=== PATIENT | male | born 1965 | race African-American/Black ===

== ENCOUNTER 2023-07-01 11:56 | Inpatient (IN) | payer OTHER ==
[~2023-07-01] VITALS: Ht 175.3 cm; Wt 164.0 kg
[2023-07-01] MEDS ORDERED: CALCIUM GLUCONATE 0.465 MEQ/ML 10 ML VIAL ONE (12:06)
[2023-07-01] MEDS: CALCIUM GLUCONATE 100 MG/ML 10 ML IVP ONE (12:22)
[2023-07-01] MEDS: ONDANSETRON HCL 4 MG/2 ML VIAL IVP ONE (12:23)
[2023-07-01] MEDS: SODIUM CHLORIDE 0.9% 1,000 ML IV ONE (12:23)
[2023-07-01] MEDS: DILTIAZEM HCL 5 MG/ML 5 ML VIAL IVP ONE ×2 (12:23→17:04)
[2023-07-01] MEDS ORDERED: APIX5TAB PO (12:27)
[2023-07-01] MEDS ORDERED: METO100T14 PO (12:27)
[2023-07-01] MEDS ORDERED: ISOS60TA77 PO (12:27)
[2023-07-01] MEDS ORDERED: DILT240T11 PO (12:27)
[2023-07-01] MEDS ORDERED: HYDR100T28 PO (12:27)
[2023-07-01] MEDS ORDERED: CHLO25TA3 PO (12:27)
[2023-07-01] MEDS ORDERED: SPIR-37 PO (12:27)
[2023-07-01] MEDS ORDERED: LOSA100T59 PO (12:27)
[2023-07-01] MEDS ORDERED: TAMS0.4C94 PO (12:27)
[2023-07-01] MEDS ORDERED: ATOR20TA65 PO (12:27)
[2023-07-01] MEDS ORDERED: GABA-1181 PO (12:27)
[2023-07-01 12:38] LABS: BASOPHILS % (AUTO) 0.2 % (0.0-2.0); EOSINOPHILS % (AUTO) 0 % (1.0-6.0); HEMOGLOBIN 17.8 g/dL (13.5-17.5); LYMPHOCYTES # (AUTO) 1.5 K/uL (1.0-4.8); LYMPHOCYTES % (AUTO) 11.1 % (22.0-44.0); MEAN CORPUSCULAR HEMOGLOBIN 31.5 pg (26.0-34.0); MEAN CORPUSCULAR HGB CONC 33.6 G/dL (31.0-37.0); MEAN CORPUSCULAR VOLUME 94 fL (80-100); MONOCYTES # (AUTO) 0.9 K/uL (0.1-1.0); MONOCYTES % (AUTO) 6.5 % (2.0-9.0); NEUTROPHILS % (AUTO) 82.2 % (40.0-70.0); PLATELET COUNT (AUTO) 224 K/uL (150-450); RED BLOOD CELL COUNT(AUTO) 5.66 MIL/uL (4.50-5.90); RED CELL DISTRIBUTION WIDTH 15.5 % (11.5-14.5); WHITE BLOOD COUNT (AUTO) 13.4 K/uL (4.5-11.0)
[2023-07-01 12:45] LABS: ABG BASE EXCESS -7.5 mmol/L (-2.0-3.0); ABG CARBOXYHEMOGLOBIN 0.2 % (0.0-1.5); ABG HCO3 22.7 mmol/L (22.0-26.0); ABG METHEMOGLOBIN 0.8 % (0.0-1.5); ABG OXYGEN CONTENT 27.4 mL/dL (15.0-23.0); ABG OXYGEN SATURATION 99.3 % (95.0-98.0); ABG OXYHEMOGLOBIN 98.3 % (94.0-100.0); ABG PH 7.625 (7.35-7.450); ABG TOTAL HEMOGLOBIN 19.7 G/dL (12.0-18.0); SOURCE, BLOOD GAS ARTERIAL; TEMPERATURE, FAHRENHEIT, BG 98.6 FAHREN (96.0-98.6)
[2023-07-01 12:46] LABS: ABG A-A DIFF O2 101.1 mmHg (10-20.0); ABG PCO2 13 mmHg (35-45); ALLEN TEST, BLOOD GAS Positive; O2 DEVICE,BLOOD GAS CANNULA (ROOM AIR); SITE, BLOOD GAS LFT RADIAL
[2023-07-01 12:48] LABS: ANION GAP 24 mmol/L (8-16); CALCIUM, TOTAL 10.4 mg/dL (8.8-10.5); CARBON DIOXIDE 15 mmol/L (22-29); CHLORIDE 97 mmol/L (98-107); CREATININE 2.93 mg/dL (0.60-1.30); GLOMERULAR FILTR. RATE CALC 22 mL/min (>60); GLUCOSE,RANDOM 106 mg/dL (70-110); POTASSIUM 3.4 mmol/L (3.5-5.1); SODIUM SERUM 136 mmol/L (136-145); UREA NITROGEN, BLOOD 47 mg/dL (7-18)
[2023-07-01] MEDS: DIGOXIN 250 MCG/ML 2 ML AMP IVP ONE (12:49)
[2023-07-01] MEDS: AMIODARONE HCL 50 MG/ML 3 ML VIAL IVP ONE (12:49)
[2023-07-01 12:50] LABS: INR 1.3 (0.9-1.1)
[2023-07-01 13:02] LABS: B-TYPE NATRIURETIC PEPTIDE 34 pg/mL (0-100)
[2023-07-01 13:03] LABS: LACTIC ACID 2.7 mmol/L (0.4-2.0)
[2023-07-01 13:04] LABS: TROPONIN I-HIGH SENSITIVITY 254 ng/L (<76)
[2023-07-01] MEDS: AMIODARONE HCL 360 MG in DEXTROSE 5%-WATER 242.8 ML IV ONE (13:07)
[2023-07-01 13:10] LABS: ALCOHOL, BLOOD (SERUM) < 3 mg/dL (0-10)
[2023-07-01 13:14] LABS: ALANINE AMINOTRANSFERASE 24 U/L (12-78); ALBUMIN 3.9 g/dL (3.4-5.0); ALKALINE PHOSPHATASE 174 U/L (46-116); ASPARTATE AMINOTRANSFERASE 28 U/L (15-37); BILIRUBIN,TOTAL 1.2 mg/dL (0.1-1.0); CREATINE KINASE, TOTAL ONLY 281 U/L (39-308); LIPASE 45 U/L (16-77); TOTAL PROTEIN, SERUM 8.8 g/dL (6.4-8.2)
[2023-07-01 14:23] LABS: COVID AG,FIA SOURCE NASAL SWAB
[2023-07-01 14:43] LABS: TROPONIN I-HIGH SENSITIVITY 258 ng/L (<76)
[2023-07-01 14:47] LABS: SARS-COV2 (COVID) ANTIGEN,FIA Negative (Negative)
[2023-07-01] MEDS ORDERED: HEPARIN SODIUM,PORCINE 5,000 UNITS/ML VIAL IVP PRN (17:15)
[2023-07-01 17:45] LABS: BASOPHILS % (AUTO) 0.3 % (0.0-2.0); EOSINOPHILS % (AUTO) 0.1 % (1.0-6.0); HEMATOCRIT 49.8 % (41-53); HEMOGLOBIN 17.1 g/dL (13.5-17.5); LYMPHOCYTES # (AUTO) 1.4 K/uL (1.0-4.8); LYMPHOCYTES % (AUTO) 11.8 % (22.0-44.0); MEAN CORPUSCULAR HEMOGLOBIN 31.7 pg (26.0-34.0); MEAN CORPUSCULAR HGB CONC 34.2 G/dL (31.0-37.0); MEAN CORPUSCULAR VOLUME 93 fL (80-100); MONOCYTES # (AUTO) 0.8 K/uL (0.1-1.0); MONOCYTES % (AUTO) 6.6 % (2.0-9.0); NEUTROPHILS # (AUTO) 9.8 K/uL (1.8-7.7); NEUTROPHILS % (AUTO) 81.2 % (40.0-70.0); PLATELET COUNT (AUTO) 205 K/uL (150-450); RED BLOOD CELL COUNT(AUTO) 5.38 MIL/uL (4.50-5.90); RED CELL DISTRIBUTION WIDTH 15.3 % (11.5-14.5); WHITE BLOOD COUNT (AUTO) 12.1 K/uL (4.5-11.0)
[2023-07-01] MEDS: HEPARIN SODIUM,PORCINE 5,000 UNITS/ML VIAL IVP ONE (17:49)
[2023-07-01] MEDS: AMIODARONE HCL 540 MG in DEXTROSE 5%-WATER 239.2 ML IV ONE (17:50)
[2023-07-01] MEDS: LOSARTAN POTASSIUM 50 MG TABLET PO ONE (18:39)
[2023-07-01] MEDS: HEPARIN SODIUM 25000 UNITS/D5W 250 ML IV PRN (18:48)
[2023-07-01] MEDS: HEPARIN SODIUM,PORCINE 5,000 UNITS/ML VIAL IVP PRN (18:49)
[2023-07-01] MEDS: METOPROLOL TARTRATE 50 MG TABLET PO SCH (20:54)
[2023-07-01] MEDS: GABAPENTIN 300 MG CAPSULE PO SCH (20:57)
[2023-07-01] MEDS ORDERED: APIXABAN 5 MG TABLET PO SCH (21:00)
[2023-07-02 05:35] LABS: BASOPHILS % (AUTO) 0.5 % (0.0-2.0); EOSINOPHILS % (AUTO) 0.9 % (1.0-6.0); HEMATOCRIT 49.1 % (41-53); HEMOGLOBIN 16.9 g/dL (13.5-17.5); LYMPHOCYTES # (AUTO) 1.6 K/uL (1.0-4.8); LYMPHOCYTES % (AUTO) 15.5 % (22.0-44.0); MEAN CORPUSCULAR HEMOGLOBIN 31.9 pg (26.0-34.0); MEAN CORPUSCULAR HGB CONC 34.3 G/dL (31.0-37.0); MEAN CORPUSCULAR VOLUME 93 fL (80-100); MONOCYTES # (AUTO) 0.7 K/uL (0.1-1.0); MONOCYTES % (AUTO) 7.3 % (2.0-9.0); NEUTROPHILS # (AUTO) 7.7 K/uL (1.8-7.7); NEUTROPHILS % (AUTO) 75.8 % (40.0-70.0); PLATELET COUNT (AUTO) 218 K/uL (150-450); RED BLOOD CELL COUNT(AUTO) 5.29 MIL/uL (4.50-5.90); RED CELL DISTRIBUTION WIDTH 15.3 % (11.5-14.5); WHITE BLOOD COUNT (AUTO) 10.1 K/uL (4.5-11.0)
[2023-07-02 05:50] LABS: CALCIUM, TOTAL 9.4 mg/dL (8.8-10.5); CREATININE 2.38 mg/dL (0.60-1.30); POTASSIUM 3.9 mmol/L (3.5-5.1); THYROID STIMULATING HORMONE 0.51 uIU/mL (0.36-3.74)
[2023-07-02 05:54] LABS: TROPONIN I-HIGH SENSITIVITY 273 ng/L (<76)
[2023-07-02] MEDS: TAMSULOSIN HCL 0.4 MG CAPSULE PO SCH (08:16)
[2023-07-02] MEDS: ATORVASTATIN CALCIUM 20 MG TABLET PO SCH (08:16)
[2023-07-02] MEDS ORDERED: APIXABAN 5 MG TABLET PO SCH (09:00)
[2023-07-02] MEDS ORDERED: SPIRONOLACTONE 25 MG TABLET PO SCH (09:00)
[2023-07-02] MEDS ORDERED: CHLORTHALIDONE 25 MG TABLET PO SCH (09:00)
[2023-07-02] MEDS ORDERED: ISOSORBIDE MONONITRATE 60 MG ER TABLET PO SCH (09:00)
[2023-07-02] MEDS ORDERED: AMIODARONE HCL 750 MG in DEXTROSE 5%-WATER 485 ML IV SCH (12:45)
[2023-07-02 13:20] VITALS: BP 114/72; PULSE 86; RESP 20; TEMP 98
[2023-07-02 16:00] VITALS: BP 132/95; PULSE 100; RESP 22; TEMP 98.4
[2023-07-02 20:00] VITALS: BP 112/79; PULSE 99; RESP 20; TEMP 98.2
[2023-07-02] MEDS: APIXABAN 5 MG TABLET PO SCH (20:55)
[2023-07-02] MEDS ORDERED: ONDANSETRON HCL 4 MG/2 ML VIAL IVP PRN (23:45)
[2023-07-02] MEDS ORDERED: IPRATROPIUM BROMIDE 0.5 MG/2.5 ML NEB SOLUTION NEB PRN (23:45)
[2023-07-02] MEDS ORDERED: HYDROCODONE/ACETAMINOPHEN 5-325 MG TABLET PO PRN (23:45)
[2023-07-02] MEDS ORDERED: MORPHINE SULFATE 2 MG/ML SYRINGE IVP PRN (23:45)
[2023-07-02] MEDS ORDERED: MAGNESIUM HYDROXIDE SUSPENSION 30 ML UDCUP PO PRN (23:45)
[2023-07-02] MEDS ORDERED: ALBUTEROL SULFATE 2.5 MG/0.5 ML NEB SOLUTION NEB PRN (23:45)
[2023-07-02] MEDS ORDERED: BISACODYL 10 MG RECTAL RECTAL SUPPOSITORY PR PRN (23:45)
[2023-07-03] VITALS: BP 148/81; PULSE 91; RESP 20; TEMP 98.6; O2SAT 98
[2023-07-03 04:00] VITALS: BP 122/72; PULSE 139; RESP 17; TEMP 98.1; O2SAT 98
[2023-07-03 05:51] LABS: BASOPHILS % (AUTO) 0.3 % (0.0-2.0); EOSINOPHILS % (AUTO) 1.9 % (1.0-6.0); HEMATOCRIT 49.9 % (41-53); HEMOGLOBIN 16.5 g/dL (13.5-17.5); LYMPHOCYTES # (AUTO) 1.8 K/uL (1.0-4.8); LYMPHOCYTES % (AUTO) 16.5 % (22.0-44.0); MEAN CORPUSCULAR HGB CONC 33.1 G/dL (31.0-37.0); MEAN CORPUSCULAR VOLUME 94 fL (80-100); MONOCYTES # (AUTO) 0.8 K/uL (0.1-1.0); MONOCYTES % (AUTO) 7.4 % (2.0-9.0); NEUTROPHILS # (AUTO) 8.2 K/uL (1.8-7.7); NEUTROPHILS % (AUTO) 73.9 % (40.0-70.0); PLATELET COUNT (AUTO) 215 K/uL (150-450); RED BLOOD CELL COUNT(AUTO) 5.33 MIL/uL (4.50-5.90); RED CELL DISTRIBUTION WIDTH 14.9 % (11.5-14.5); WHITE BLOOD COUNT (AUTO) 11.1 K/uL (4.5-11.0)
[2023-07-03 06:03] LABS: CALCIUM, TOTAL 9.1 mg/dL (8.8-10.5); CREATININE 2.12 mg/dL (0.60-1.30); POTASSIUM 3.8 mmol/L (3.5-5.1)
[2023-07-03 08:00] VITALS: BP 145/90; PULSE 131; RESP 16; RESP 17; TEMP 98.1; TEMP 98.3; O2SAT 94
[2023-07-03] MEDS: PANTOPRAZOLE SODIUM 40 MG DR TABLET PO SCH (08:21)
[2023-07-03] MEDS: DILTIAZEM HCL CD 120 MG ER CAPSULE PO SCH (10:26)
[2023-07-03 12:00] VITALS: BP 132/89; PULSE 112; RESP 20; TEMP 97.6; O2SAT 97
[2023-07-03] MEDS: VANCOMYCIN HCL 1.5 GM in DEXTROSE 5%-WATER 250 ML IV ONE (13:08)
[2023-07-03 14:46] LABS: C-REACTIVE PROTEIN QUANT 4.82 mg/dL (0.00-0.30)
[2023-07-03 16:00] VITALS: BP 132/78; PULSE 105; RESP 20; TEMP 98.2; O2SAT 96
[2023-07-03 20:00] VITALS: BP 112/85; PULSE 92; RESP 18; TEMP 98.4
[2023-07-04 00:38] VITALS: BP 126/64; PULSE 66; RESP 18; TEMP 97.8
[2023-07-04 05:23] VITALS: BP 142/97; PULSE 86; RESP 18; TEMP 97.9
[2023-07-04] MEDS ORDERED: SODIUM CHLORIDE 0.9% 500 ML IV ONE (09:13)
[2023-07-04] MEDS: VANCOMYCIN HCL 1.5 GM in DEXTROSE 5%-WATER 250 ML IV SCH (09:32)
[2023-07-04 10:38] LABS: BASOPHILS % (AUTO) 0.7 % (0.0-2.0); EOSINOPHILS % (AUTO) 2.1 % (1.0-6.0); HEMATOCRIT 47.3 % (41-53); HEMOGLOBIN 15.7 g/dL (13.5-17.5); LYMPHOCYTES # (AUTO) 1.2 K/uL (1.0-4.8); LYMPHOCYTES % (AUTO) 12.7 % (22.0-44.0); MEAN CORPUSCULAR HEMOGLOBIN 31.3 pg (26.0-34.0); MEAN CORPUSCULAR HGB CONC 33.1 G/dL (31.0-37.0); MEAN CORPUSCULAR VOLUME 94 fL (80-100); MONOCYTES # (AUTO) 0.7 K/uL (0.1-1.0); MONOCYTES % (AUTO) 7.5 % (2.0-9.0); NEUTROPHILS # (AUTO) 7.2 K/uL (1.8-7.7); PLATELET COUNT (AUTO) 187 K/uL (150-450); RED BLOOD CELL COUNT(AUTO) 5.02 MIL/uL (4.50-5.90); RED CELL DISTRIBUTION WIDTH 14.8 % (11.5-14.5); WHITE BLOOD COUNT (AUTO) 9.4 K/uL (4.5-11.0)
[2023-07-04 10:49] LABS: POTASSIUM 3.7 mmol/L (3.5-5.1)
[2023-07-04 10:50] LABS: CALCIUM, TOTAL 9.1 mg/dL (8.8-10.5); CREATININE 1.59 mg/dL (0.60-1.30)
[2023-07-04 11:09] VITALS: BP 143/97; PULSE 92; RESP 16; TEMP 97.4
[2023-07-04 12:36] VITALS: BP 129/86; PULSE 87; RESP 14; TEMP 97.6
[2023-07-04 15:28] LABS: APPEARANCE,URINE CLEAR (CLEAR); BILIRUBIN,URINE NEGATIVE (NEGATIVE); COLOR,URINE LIGHT YELLOW (YELLOW); GLUCOSE, URINE (UA) NEGATIVE (NEGATIVE); KETONES,URINE NEGATIVE (NEGATIVE); LEUKOCYTE ESTERASE ,URINE NEGATIVE (NEGATIVE); NITRATE,URINE NEGATIVE (NEGATIVE); OCCULT BLOOD,URINE NEGATIVE (NEGATIVE); PROTEIN,URINE TRACE mg/dL (NEGATIVE); SPECIFIC GRAVITIY, URINE 1.019 (1.003-1.030); UROBILINOGEN,URINE <=1.0 mg/dL (<=1.0)
[2023-07-04 16:16] LABS: BACTERIA,URINE None Seen /HPF (None Seen); RBC,URINE None Seen /HPF (0-2); SQUAMOUS EPITHELIAL CELL,UR None Seen /LPF (None Seen); WBC,URINE None Seen /HPF (0-5)
[2023-07-04 17:53] VITALS: BP 120/99; PULSE 78; RESP 14; TEMP 98.1
[2023-07-04 20:20] VITALS: BP 135/91; PULSE 71; RESP 18; TEMP 97.7
[2023-07-04] MEDS: ZOLPIDEM TARTRATE 5 MG TABLET PO PRN (20:25)
[2023-07-04] MEDS: VANCOMYCIN HCL 1.25 GM in DEXTROSE 5%-WATER 250 ML IV SCH (20:25)
[2023-07-05 00:01] LABS: ALCOHOL, URINE DRUG SCREEN NEGATIVE (NEGATIVE); AMPHET/METH SCREEN,URINE NEGATIVE (NEGATIVE); BARBITURATE SCREEN, URINE NEGATIVE (NEGATIVE); BENZODIAZEPINES SCREEN,URINE NEGATIVE (NEGATIVE); CANNABINOID SCREEN,URINE NEGATIVE (NEGATIVE); COCAINE SCREEN,URINE NEGATIVE (NEGATIVE); METHADONE SCREEN, URINE NEGATIVE (NEGATIVE); OPIATE SCREEN,URINE NEGATIVE (NEGATIVE); PHENCYCLIDINE SCREEN,URINE NEGATIVE (NEGATIVE)
[2023-07-05 04:00] VITALS: BP 128/89; PULSE 82; RESP 17; TEMP 97.8
[2023-07-05 07:18] LABS: ANION GAP 9 mmol/L (8-16); CALCIUM, TOTAL 9.2 mg/dL (8.8-10.5); CARBON DIOXIDE 26 mmol/L (22-29); CHLORIDE 102 mmol/L (98-107); GLOMERULAR FILTR. RATE CALC > 60 mL/min (>60); GLUCOSE,RANDOM 92 mg/dL (70-110); POTASSIUM 3.9 mmol/L (3.5-5.1); SODIUM SERUM 137 mmol/L (136-145); UREA NITROGEN, BLOOD 27 mg/dL (7-18)
[2023-07-05 14:57] VITALS: BP 158/113; PULSE 92; RESP 18; TEMP 98
[2023-07-05 18:19] VITALS: BP 143/96; PULSE 89; RESP 18; TEMP 97.8
[2023-07-05 20:00] VITALS: BP 133/75; PULSE 92; RESP 18; TEMP 97.9
[2023-07-06] VITALS: BP 133/107; PULSE 91; RESP 16; TEMP 97.7
[2023-07-06 04:00] VITALS: BP 157/108; PULSE 91; RESP 17; TEMP 98
[2023-07-06 06:09] LABS: CALCIUM, TOTAL 9.3 mg/dL (8.8-10.5); CREATININE 1.5 mg/dL (0.60-1.30); POTASSIUM 4.1 mmol/L (3.5-5.1); VANCOMYCIN,RANDOM 25.1 mcg/mL (25.0-50.0)
[2023-07-06 09:30] VITALS: BP 143/96; PULSE 89; RESP 18; TEMP 97.8
[2023-07-06] MEDS ORDERED: SODIUM CHLORIDE 0.9% 1,000 ML ONE (09:37)
[2023-07-06] MEDS: VANCOMYCIN 1GM/WATER(PEG/NADA) 200 ML IV SCH (09:43)
[2023-07-06 13:42] VITALS: BP 117/95; PULSE 90; RESP 18; TEMP 98
[2023-07-06 18:00] VITALS: BP 149/96; PULSE 93; RESP 18; TEMP 97.5
[2023-07-06 20:00] VITALS: BP 160/87; PULSE 92; RESP 17; TEMP 98.2
[2023-07-07] VITALS (7 sets, daily range): BP systolic 117–165; BP diastolic 79–104; PULSE 75–87; RESP 18–20; TEMP 98–98.3
[2023-07-07 07:52] LABS: ANION GAP 7 mmol/L (8-16); C-REACTIVE PROTEIN QUANT 2.39 mg/dL (0.00-0.30); CALCIUM, TOTAL 9.2 mg/dL (8.8-10.5); CARBON DIOXIDE 27 mmol/L (22-29); CHLORIDE 103 mmol/L (98-107); CREATININE 1.34 mg/dL (0.60-1.30); GLOMERULAR FILTR. RATE CALC > 60 mL/min (>60); GLUCOSE,RANDOM 77 mg/dL (70-110); POTASSIUM 4.3 mmol/L (3.5-5.1); SODIUM SERUM 137 mmol/L (136-145); UREA NITROGEN, BLOOD 24 mg/dL (7-18)
[2023-07-07 07:53] LABS: BASOPHILS % (AUTO) 0.2 % (0.0-2.0); HEMATOCRIT 45.9 % (41-53); LYMPHOCYTES # (AUTO) 1.4 K/uL (1.0-4.8); LYMPHOCYTES % (AUTO) 16.5 % (22.0-44.0); MEAN CORPUSCULAR HEMOGLOBIN 30.8 pg (26.0-34.0); MEAN CORPUSCULAR HGB CONC 32.7 G/dL (31.0-37.0); MEAN CORPUSCULAR VOLUME 94 fL (80-100); MONOCYTES # (AUTO) 0.5 K/uL (0.1-1.0); MONOCYTES % (AUTO) 6.2 % (2.0-9.0); NEUTROPHILS # (AUTO) 6.4 K/uL (1.8-7.7); NEUTROPHILS % (AUTO) 74.1 % (40.0-70.0); PLATELET COUNT (AUTO) 229 K/uL (150-450); RED BLOOD CELL COUNT(AUTO) 4.88 MIL/uL (4.50-5.90); RED CELL DISTRIBUTION WIDTH 14.6 % (11.5-14.5); WHITE BLOOD COUNT (AUTO) 8.6 K/uL (4.5-11.0)
[2023-07-07] MEDS: ACETAMINOPHEN 325 MG TABLET PO PRN (08:11)
[2023-07-08 00:13] VITALS: BP 152/98; PULSE 85; RESP 20; TEMP 97.5
[2023-07-08 08:00] VITALS: BP 144/98; PULSE 82; RESP 20; TEMP 97.4
[2023-07-08 08:23] LABS: ANION GAP 8 mmol/L (8-16); CALCIUM, TOTAL 9.1 mg/dL (8.8-10.5); CARBON DIOXIDE 28 mmol/L (22-29); CHLORIDE 104 mmol/L (98-107); CREATININE 1.27 mg/dL (0.60-1.30); GLOMERULAR FILTR. RATE CALC > 60 mL/min (>60); GLUCOSE,RANDOM 77 mg/dL (70-110); POTASSIUM 3.7 mmol/L (3.5-5.1); SODIUM SERUM 140 mmol/L (136-145); UREA NITROGEN, BLOOD 20 mg/dL (7-18); VANCOMYCIN,RANDOM 20.4 mcg/mL (25.0-50.0)
[2023-07-08 12:00] VITALS: BP 130/84; PULSE 78; RESP 20; TEMP 98
[2023-07-08 16:00] VITALS: BP 128/78; PULSE 68; RESP 20; TEMP 97.9
[2023-07-08] MEDS ORDERED: IOHEXOL 350 MG/ML 100 ML VIAL ONE ×2 (17:18→23:26)
[2023-07-08] MEDS ORDERED: SODIUM CHLORIDE 0.9% 0 ML ONE (17:19)
[2023-07-08 20:00] VITALS: BP 134/80; PULSE 72; RESP 20; TEMP 98.4
[2023-07-08] MEDS: SIMETHICONE 80 MG CHEWABLE TABLET CHEW SCH (21:03)
[2023-07-08] MEDS ORDERED: SODIUM CHLORIDE 0.9% 100 ML ONE (23:25)
[2023-07-09 04:00] VITALS: BP 130/68; PULSE 69; RESP 20; TEMP 98.2
[2023-07-09 07:51] LABS: ANION GAP 9 mmol/L (8-16); CALCIUM, TOTAL 9.1 mg/dL (8.8-10.5); CARBON DIOXIDE 26 mmol/L (22-29); CHLORIDE 104 mmol/L (98-107); CREATININE 1.33 mg/dL (0.60-1.30); GLOMERULAR FILTR. RATE CALC > 60 mL/min (>60); GLUCOSE,RANDOM 121 mg/dL (70-110); POTASSIUM 3.7 mmol/L (3.5-5.1); SODIUM SERUM 139 mmol/L (136-145); UREA NITROGEN, BLOOD 21 mg/dL (7-18)
[2023-07-09 08:00] VITALS: BP 144/81; PULSE 88; RESP 18; TEMP 97.8
[2023-07-09 12:00] VITALS: BP 98/66; PULSE 83; RESP 18; TEMP 97.9
[2023-07-09 16:00] VITALS: BP 137/98; PULSE 78; RESP 18; TEMP 98
[2023-07-09 20:00] VITALS: BP 143/96; PULSE 75; RESP 18; TEMP 97.8
[2023-07-10 00:18] VITALS: BP 156/79; PULSE 73; RESP 18; TEMP 98.3
[2023-07-10 04:00] VITALS: BP 127/75; PULSE 73; RESP 18; TEMP 97.5
[2023-07-10 07:23] LABS: BASOPHILS % (AUTO) 0.3 % (0.0-2.0); EOSINOPHILS % (AUTO) 2.3 % (1.0-6.0); HEMATOCRIT 45.3 % (41-53); HEMOGLOBIN 15.2 g/dL (13.5-17.5); LYMPHOCYTES # (AUTO) 1.4 K/uL (1.0-4.8); LYMPHOCYTES % (AUTO) 17.2 % (22.0-44.0); MEAN CORPUSCULAR HGB CONC 33.6 G/dL (31.0-37.0); MEAN CORPUSCULAR VOLUME 92 fL (80-100); MONOCYTES # (AUTO) 0.4 K/uL (0.1-1.0); MONOCYTES % (AUTO) 4.9 % (2.0-9.0); NEUTROPHILS # (AUTO) 6.2 K/uL (1.8-7.7); NEUTROPHILS % (AUTO) 75.3 % (40.0-70.0); PLATELET COUNT (AUTO) 234 K/uL (150-450); RED BLOOD CELL COUNT(AUTO) 4.91 MIL/uL (4.50-5.90); RED CELL DISTRIBUTION WIDTH 14.2 % (11.5-14.5); WHITE BLOOD COUNT (AUTO) 8.3 K/uL (4.5-11.0)
[2023-07-10 08:00] VITALS: BP 156/102; PULSE 92; RESP 18; TEMP 97.7
[2023-07-10 08:11] LABS: ANION GAP 9 mmol/L (8-16); C-REACTIVE PROTEIN QUANT 1.52 mg/dL (0.00-0.30); CALCIUM, TOTAL 9.1 mg/dL (8.8-10.5); CARBON DIOXIDE 27 mmol/L (22-29); CHLORIDE 103 mmol/L (98-107); CREATININE 1.27 mg/dL (0.60-1.30); GLOMERULAR FILTR. RATE CALC > 60 mL/min (>60); GLUCOSE,RANDOM 88 mg/dL (70-110); POTASSIUM 3.7 mmol/L (3.5-5.1); SODIUM SERUM 139 mmol/L (136-145); UREA NITROGEN, BLOOD 17 mg/dL (7-18)
[2023-07-10] MEDS ORDERED: SODIUM CHLORIDE 0.9% 500 ML IV ONE (11:54)
[2023-07-10 12:00] VITALS: BP 140/98; PULSE 80; RESP 18; TEMP 98.1
[2023-07-10 16:00] VITALS: BP 147/86; PULSE 76; RESP 18; TEMP 98.2
[2023-07-10 20:12] VITALS: BP 107/79; PULSE 73; RESP 18; TEMP 98.6
[2023-07-11] VITALS (8 sets, daily range): BP systolic 137–170; BP diastolic 83–114; PULSE 61–99; RESP 18–21; TEMP 97.8–98.6
[2023-07-11 07:30] LABS: BASOPHILS % (AUTO) 0.3 % (0.0-2.0); EOSINOPHILS % (AUTO) 2.3 % (1.0-6.0); HEMATOCRIT 45.1 % (41-53); LYMPHOCYTES # (AUTO) 1.4 K/uL (1.0-4.8); LYMPHOCYTES % (AUTO) 16.1 % (22.0-44.0); MEAN CORPUSCULAR HEMOGLOBIN 30.9 pg (26.0-34.0); MEAN CORPUSCULAR HGB CONC 33.3 G/dL (31.0-37.0); MEAN CORPUSCULAR VOLUME 93 fL (80-100); MONOCYTES # (AUTO) 0.5 K/uL (0.1-1.0); MONOCYTES % (AUTO) 5.5 % (2.0-9.0); NEUTROPHILS # (AUTO) 6.6 K/uL (1.8-7.7); NEUTROPHILS % (AUTO) 75.8 % (40.0-70.0); PLATELET COUNT (AUTO) 228 K/uL (150-450); RED BLOOD CELL COUNT(AUTO) 4.87 MIL/uL (4.50-5.90); RED CELL DISTRIBUTION WIDTH 14.3 % (11.5-14.5); WHITE BLOOD COUNT (AUTO) 8.7 K/uL (4.5-11.0)
[2023-07-11 07:44] LABS: ALANINE AMINOTRANSFERASE 30 U/L (12-78); ALBUMIN 2.8 g/dL (3.4-5.0); ALKALINE PHOSPHATASE 142 U/L (46-116); ANION GAP 9 mmol/L (8-16); ASPARTATE AMINOTRANSFERASE 22 U/L (15-37); BILIRUBIN,TOTAL 0.5 mg/dL (0.1-1.0); CALCIUM, TOTAL 9.1 mg/dL (8.8-10.5); CARBON DIOXIDE 28 mmol/L (22-29); CHLORIDE 102 mmol/L (98-107); CREATININE 1.29 mg/dL (0.60-1.30); GLOMERULAR FILTR. RATE CALC > 60 mL/min (>60); GLUCOSE,RANDOM 85 mg/dL (70-110); POTASSIUM 3.6 mmol/L (3.5-5.1); SODIUM SERUM 139 mmol/L (136-145); UREA NITROGEN, BLOOD 16 mg/dL (7-18)
[2023-07-11] MEDS ORDERED: HydrALAZINE HCL 20 MG/ML VIAL IVP PRN (13:15)
[2023-07-11] MEDS: HydrALAZINE HCL 25 MG TABLET PO SCH (17:24)
[2023-07-12] VITALS (7 sets, daily range): BP systolic 127–154; BP diastolic 82–103; PULSE 65–82; RESP 18–20; TEMP 97.7–98.5
[2023-07-12] MEDS ORDERED: LIDOCAINE 2% VISCOUS 15 ML SOLUTION UDCUP ONE (07:03)
[2023-07-12] MEDS ORDERED: MIDAZOLAM HCL 2 MG/2 ML VIAL ONE (07:36)
[2023-07-12] MEDS ORDERED: FentaNYL CITRATE PF 100 MCG/2 ML VIAL ONE (07:36)
[2023-07-12 08:02] LABS: BASOPHILS % (AUTO) 0.2 % (0.0-2.0); HEMATOCRIT 45.7 % (41-53); HEMOGLOBIN 15.4 g/dL (13.5-17.5); LYMPHOCYTES # (AUTO) 1.5 K/uL (1.0-4.8); MEAN CORPUSCULAR HEMOGLOBIN 31.3 pg (26.0-34.0); MEAN CORPUSCULAR HGB CONC 33.8 G/dL (31.0-37.0); MEAN CORPUSCULAR VOLUME 93 fL (80-100); MONOCYTES # (AUTO) 0.6 K/uL (0.1-1.0); NEUTROPHILS # (AUTO) 8.2 K/uL (1.8-7.7); NEUTROPHILS % (AUTO) 77.8 % (40.0-70.0); PLATELET COUNT (AUTO) 245 K/uL (150-450); RED BLOOD CELL COUNT(AUTO) 4.93 MIL/uL (4.50-5.90); RED CELL DISTRIBUTION WIDTH 13.9 % (11.5-14.5); WHITE BLOOD COUNT (AUTO) 10.5 K/uL (4.5-11.0)
[2023-07-12] MEDS: FentaNYL CITRATE PF 100 MCG/2 ML VIAL IVP ONE ×2 (08:03→08:04)
[2023-07-12] MEDS: MIDAZOLAM HCL 2 MG/2 ML VIAL IVP ONE ×2 (08:04)
[2023-07-12] MEDS: LIDOCAINE 2% VISCOUS 15 ML SOLUTION UDCUP PO ONE (08:05)
[2023-07-12 08:43] LABS: ALANINE AMINOTRANSFERASE 39 U/L (12-78); ALBUMIN 2.9 g/dL (3.4-5.0); ALKALINE PHOSPHATASE 158 U/L (46-116); ANION GAP 7 mmol/L (8-16); ASPARTATE AMINOTRANSFERASE 32 U/L (15-37); BILIRUBIN,TOTAL 0.4 mg/dL (0.1-1.0); CARBON DIOXIDE 29 mmol/L (22-29); CHLORIDE 103 mmol/L (98-107); CREATININE 1.17 mg/dL (0.60-1.30); GLOMERULAR FILTR. RATE CALC > 60 mL/min (>60); GLUCOSE,RANDOM 91 mg/dL (70-110); POTASSIUM 3.6 mmol/L (3.5-5.1); SODIUM SERUM 139 mmol/L (136-145); TOTAL PROTEIN, SERUM 7.2 g/dL (6.4-8.2); UREA NITROGEN, BLOOD 16 mg/dL (7-18); VANCOMYCIN,RANDOM 16.4 mcg/mL (25.0-50.0)
[2023-07-13] VITALS (7 sets, daily range): BP systolic 143–184; BP diastolic 82–112; PULSE 64–75; RESP 18; TEMP 97.6–98.4
[2023-07-13 07:32] LABS: ALANINE AMINOTRANSFERASE 27 U/L (12-78); ALKALINE PHOSPHATASE 154 U/L (46-116); ANION GAP 9 mmol/L (8-16); ASPARTATE AMINOTRANSFERASE 22 U/L (15-37); BASOPHILS % (AUTO) 0.2 % (0.0-2.0); BILIRUBIN,TOTAL 0.4 mg/dL (0.1-1.0); CALCIUM, TOTAL 9.3 mg/dL (8.8-10.5); CARBON DIOXIDE 27 mmol/L (22-29); CHLORIDE 103 mmol/L (98-107); CREATININE 1.36 mg/dL (0.60-1.30); EOSINOPHILS % (AUTO) 2.2 % (1.0-6.0); GLOMERULAR FILTR. RATE CALC > 60 mL/min (>60); GLUCOSE,RANDOM 87 mg/dL (70-110); HEMATOCRIT 48.7 % (41-53); HEMOGLOBIN 15.5 g/dL (13.5-17.5); LYMPHOCYTES # (AUTO) 1.7 K/uL (1.0-4.8); LYMPHOCYTES % (AUTO) 18.9 % (22.0-44.0); MEAN CORPUSCULAR HEMOGLOBIN 30.1 pg (26.0-34.0); MEAN CORPUSCULAR HGB CONC 31.9 G/dL (31.0-37.0); MEAN CORPUSCULAR VOLUME 94 fL (80-100); MONOCYTES # (AUTO) 0.5 K/uL (0.1-1.0); NEUTROPHILS # (AUTO) 6.6 K/uL (1.8-7.7); NEUTROPHILS % (AUTO) 72.7 % (40.0-70.0); PLATELET COUNT (AUTO) 234 K/uL (150-450); POTASSIUM 3.9 mmol/L (3.5-5.1); RED BLOOD CELL COUNT(AUTO) 5.16 MIL/uL (4.50-5.90); RED CELL DISTRIBUTION WIDTH 14.2 % (11.5-14.5); SODIUM SERUM 139 mmol/L (136-145); TOTAL PROTEIN, SERUM 7.7 g/dL (6.4-8.2); UREA NITROGEN, BLOOD 17 mg/dL (7-18); WHITE BLOOD COUNT (AUTO) 9.1 K/uL (4.5-11.0)
[2023-07-14 00:24] VITALS: BP 146/107; PULSE 69; RESP 18; TEMP 97.6
[2023-07-14 04:16] VITALS: BP 129/96; PULSE 59; RESP 18; TEMP 97.6
[2023-07-14 07:35] LABS: BASOPHILS % (AUTO) 0.3 % (0.0-2.0); EOSINOPHILS % (AUTO) 2.3 % (1.0-6.0); HEMATOCRIT 46.6 % (41-53); HEMOGLOBIN 15.6 g/dL (13.5-17.5); LYMPHOCYTES # (AUTO) 1.6 K/uL (1.0-4.8); LYMPHOCYTES % (AUTO) 17.3 % (22.0-44.0); MEAN CORPUSCULAR HEMOGLOBIN 31.1 pg (26.0-34.0); MEAN CORPUSCULAR HGB CONC 33.4 G/dL (31.0-37.0); MEAN CORPUSCULAR VOLUME 93 fL (80-100); MONOCYTES # (AUTO) 0.5 K/uL (0.1-1.0); MONOCYTES % (AUTO) 5.4 % (2.0-9.0); NEUTROPHILS # (AUTO) 6.8 K/uL (1.8-7.7); NEUTROPHILS % (AUTO) 74.7 % (40.0-70.0); PLATELET COUNT (AUTO) 233 K/uL (150-450); RED BLOOD CELL COUNT(AUTO) 5.01 MIL/uL (4.50-5.90); RED CELL DISTRIBUTION WIDTH 14.1 % (11.5-14.5); WHITE BLOOD COUNT (AUTO) 9.2 K/uL (4.5-11.0)
[2023-07-14 08:00] LABS: ALANINE AMINOTRANSFERASE 26 U/L (12-78); ALBUMIN 2.8 g/dL (3.4-5.0); ALKALINE PHOSPHATASE 145 U/L (46-116); ANION GAP 10 mmol/L (8-16); ASPARTATE AMINOTRANSFERASE 19 U/L (15-37); BILIRUBIN,TOTAL 0.4 mg/dL (0.1-1.0); CALCIUM, TOTAL 9.1 mg/dL (8.8-10.5); CARBON DIOXIDE 27 mmol/L (22-29); CHLORIDE 103 mmol/L (98-107); CREATININE 1.22 mg/dL (0.60-1.30); GLOMERULAR FILTR. RATE CALC > 60 mL/min (>60); GLUCOSE,RANDOM 88 mg/dL (70-110); POTASSIUM 3.8 mmol/L (3.5-5.1); SODIUM SERUM 140 mmol/L (136-145); UREA NITROGEN, BLOOD 16 mg/dL (7-18)
[2023-07-14 08:25] VITALS: BP 133/90; PULSE 74; RESP 20; TEMP 97.8
[2023-07-14 11:32] VITALS: BP 146/104; PULSE 91; RESP 20; TEMP 98
[2023-07-14 20:06] VITALS: BP 179/104; PULSE 73; RESP 18; TEMP 98.2
[2023-07-15] MEDS ORDERED: ASPIRIN 81 MG CHEWABLE TABLET PO SCH (09:00)
== END 2023-07-14 20:20 | DRG 720 ==
LOC: EMS 11:58 → AHU 19:06 → ICU 07-02 12:23 → 5S 07-03 23:20
PROVIDERS: ADMIT Hospitalist; ATTEND Hospitalist
PROC: 02HV33Z Insertion of Infusion Device into Superior Vena Cava, Percutaneous Approach (ICD-10-PCS; principal; 2023-07-01)
PROC: B548ZZA Ultrasonography of Superior Vena Cava, Guidance (ICD-10-PCS; 2023-07-01)
DX: A41.2 Sepsis due to unspecified staphylococcus (principal); N17.0 Acute kidney failure with tubular necrosis; I50.43 Acute on chronic combined systolic (congestive) and diastolic (congestive) heart failure; I48.19 Other persistent atrial fibrillation; Z68.43 Body mass index [BMI] 50.0-59.9, adult; M46.24 Osteomyelitis of vertebra, thoracic region; G62.9 Polyneuropathy, unspecified; I13.0 Hypertensive heart and chronic kidney disease with heart failure and stage 1 through stage 4 chronic kidney disease, or unspecified chronic kidney disease; B96.89 Other specified bacterial agents as the cause of diseases classified elsewhere; N18.9 Chronic kidney disease, unspecified; N40.0 Benign prostatic hyperplasia without lower urinary tract symptoms; E66.01 Morbid (severe) obesity due to excess calories; G89.29 Other chronic pain; M54.50 Low back pain, unspecified; M47.817 Spondylosis without myelopathy or radiculopathy, lumbosacral region; Z20.822 Contact with and (suspected) exposure to COVID-19; E78.00 Pure hypercholesterolemia, unspecified; I48.92 Unspecified atrial flutter; R79.89 Other specified abnormal findings of blood chemistry; Z79.01 Long term (current) use of anticoagulants; K00.7 Teething syndrome; M86.8X8 Other osteomyelitis, other site; F32.A Depression, unspecified; Z79.899 Other long term (current) drug therapy
CPT/HCPCS: 36245; 36569; 36600; 71045; 72129; 72132; 76937; 80048; 80053; 80202; 80307; 81001; 82550; 82805; 83605; 83690; 83880; 84145; 84443; 84484; 85025; 85610; 85730; 86140; 87040; 87077; 87081; 87205; 93005; 93308; 93312; 97116; 97163; 97166; 97530; 97535; 99285; G0378; G0480; J0282; J0360; J0610; J1160; J1644; J2250; J2405; J3010; J3370; J3490; J7030; J7040; J7050; J7060; Q9967; 36415-L1; 36415-TC